=== PATIENT | female | born 1985 | race Caucasian/White ===

== ENCOUNTER → 2016-09-11 | Outpatient (CLI) | payer OTHER ==
--- NOTE | 2016-09-11 15:43 | US ---
EXAMINATION TYPE: US pelvic complete DATE OF EXAM: 09/11/2016 3:30 PM COMPARISON: NONE CLINICAL HISTORY: Pelvic Pain R10.2. TECHNIQUE: Transabdominal (TA) Date of LMP: 08/21/2016 EXAM MEASUREMENTS: Uterus: 8.3 x 4.4 x 5.2 cm Endometrial Stripe: 1.3 cm Right Ovary: 3.8 x 2.2 x 3.7 cm Left Ovary: 1.8 x 1.6 x2.4 cm 1. Uterus: Anteverted wnl 2. Endometrium: wnl 3. Right Ovary: wnl 4. Left Ovary: wnl 5. Bilateral Adnexa: small amount of free fluid adjacent to right ovary 6. Posterior cul-de-sac: no free fluid Endometrium is 13 mm with trilaminar appearance, upper limits of normal for secretory phase of menstr ual cycle. IMPRESSION: Small amount of free fluid in right pelvis, nonspecific finding, otherwise unremarkable s martha.
== END | disposition home or self-care (01) ==
LOC: RADUSWWP 15:06
PROVIDERS: ATTEND Obstetrics & Gynecology
DX: R10.2 Pelvic and perineal pain (principal)
CPT/HCPCS: 76856

== ENCOUNTER → 2017-11-10 | Outpatient (CLI) | payer OTHER ==
--- NOTE | 2017-11-11 07:23 | US ---
EXAMINATION TYPE: US pelvic complete DATE OF EXAM: 11/10/2017 COMPARISON: US CLINICAL HISTORY: R10.2 Pelvic pain; intermittent pelvic pain x 2 months, right > left; ; LEAP pr ocedure TECHNIQUE: Transabdominal (TA). Transabdominal sonographic images of the pelvis were acquired. Date of LMP: 11/07/2017 EXAM MEASUREMENTS: Uterus: 7.7 x 5.5 x 3.4 cm Endometrial Stripe: 0.2 cm Right Ovary: 2.8 x 2.1 x 1.7 cm Left Ovary: 3.0 x 3.0 x 1.9 cm 1. Uterus: Anteverted; patient wearing tampon at time of exam 2. Endometrium: thickness is wnl for Day 4 LMP 3. Right Ovary: small follicles 4. Left Ovary: small follicles Spectral, color and waveform Doppler imaging shows good arterial and venous flow within the ovaries ; there is no evidence for ovarian torsion. 5. Bilateral Adnexa: wnl 6. Posterior cul-de-sac: wnl IMPRESSION: 1. No significant abnormality identified at this time.
== END | disposition home or self-care (01) ==
LOC: RADUSWWP 16:17
PROVIDERS: ATTEND Obstetrics & Gynecology
DX: R10.2 Pelvic and perineal pain (principal)
CPT/HCPCS: 76856

== ENCOUNTER → 2017-12-02 | Outpatient (CLI) | payer OTHER ==
--- NOTE | 2017-12-02 22:41 | MR ---
EXAMINATION TYPE: MR lumbar spine wo con DATE OF EXAM: 12/02/2017 COMPARISON: Prior MRI lumbar spine December 09, 2015 HISTORY: LBP, scoliosis TECHNIQUE: Multiplanar, multisequence imaging of the lumbar spine is performed without IV contrast. FINDINGS: Sagittal images of the lumbar spine show vertebral body heights and alignment to appear sat isfactory. There is disc desiccation redemonstrated L4-L5 level otherwise the intervertebral discs de monstrate normal heights and hydration. No significant change from prior. Posterior disc herniation L 4-L5 level is redemonstrated on sagittal images. The conus medullaris is stable in position ending at mid T12 level without abnormal signal. The bone marrow signal intensity is within normal limits. Axial images show the T12-L1, L1-L2, and L2-L3 levels all to remain within normal limits. Axial images at L3-L4 level shows mild broad-based posterior disc protrusion minimally effacing anter ior thecal sac on axial image 15, bilateral neuroforamina are patent. No significant change from prio r. Axial images at L4-L5 level shows central disc protrusion effacing the anterior thecal sac on axial i mage 9, bilateral neural foramina are patent. No significant change from prior. Increased signal post eriorly consistent with annular tear is redemonstrated. Axial images at L5-S1 level are felt to remain within normal limits. No suspicious retroperitoneal findings are seen. IMPRESSION: Stable degenerative changes L3-L4 and to a greater degree L4-L5 level noted.
== END | disposition home or self-care (01) ==
LOC: RADMRIMAIN 21:03
PROVIDERS: ATTEND Psychiatry & Neurology Neurology
DX: M47.816 Spondylosis without myelopathy or radiculopathy, lumbar region (principal)
CPT/HCPCS: 72148

== ENCOUNTER 2017-12-05 11:41 | Emergency (ER) | payer OTHER ==
[2017-12-05 12:00] VITALS: BP 115/75; PULSE 64; RESP 18; TEMP 98
[2017-12-05] MEDS ORDERED: HYDROcodone/APAP 5-325MG 1 EACH TAB PO STA (12:14)
--- NOTE | 2017-12-05 12:31 | ED ---
Back Pain HPI - General Source: patient, RN notes reviewed Mode of arrival: ambulatory Limitations: no limitations <Fanta Kamara - Last Filed: 12/05/17 12:15> <Alexis Murdock - Last Filed: 12/08/17 06:34> - General Chief Complaint: Back Pain/Injury Stated Complaint: Back Pain Time Seen by Provider: 12/05/17 12:04 - History of Present Illness Initial Comments: This is a 32-year-old female who presents to the emergency department with chief complaint of chronic back pain. Patient states that she has been seeing Dr. Frias, a senior medical billing specialist. She states that she had an MRI performed recently but has yet to hear the results. She states that the senior medical billing specialist will not refill her [place] until the MRI results came back. She states that she has run out of her [place] but still has Flexeril and Motrin. Patient denies any recent falls, injuries or trauma since the MRI was taken. She denies saddle paresthesias or loss of bladder or bowel function. She denies radiation of pain down the legs or numbness and tingling. Patient requests pain medication. Denies recent fevers or chills, chest pain shortness of breath, abdominal pain , nausea or vomiting. (Fanta Kamara) - Related Data Home Medications Medication Instructions Recorded Confirmed Cyclobenzaprine [Flexeril] 10 mg PO TID PRN 12/11/16 12/11/16 HYDROcodone/APAP 5-325MG [[place] 1 tab PO BID 12/11/16 12/11/16 5-325] Allergies Allergy/AdvReac Type Severity Reaction Status Date / Time No Known Allergies Allergy Verified 12/05/17 11:57 Review of Systems ROS Other: All systems not noted in ROS Statement are negative. <Fanta Kamara - Last Filed: 12/05/17 12:15> ROS Other: All systems not noted in ROS Statement are negative. <Alexis Murdock - Last Filed: 12/08/17 06:34> ROS Statement: Those systems with pertinent positive or pertinent negative responses have been documented in the HPI. Past Medical History Past Medical History: Chest Pain / Angina Additional Past Medical History / Comment(s): Scoliosis, dislocated disk, hx "liver infection" fall 2016, History of Any Multi-Drug Resistant Organisms: None Reported Past Surgical History: Tubal Ligation Additional Past Surgical History / Comment(s): LEEP procedure Past Anesthesia/Blood Transfusion Reactions: No Reported Reaction Past Psychological History: Anxiety Smoking Status: Current every day smoker Past Alcohol Use History: None Reported Past Drug Use History: None Reported - Past Family History Father History Unknown: Yes Mother History Unknown: Yes Family Medical History: No Reported History <Fanta Kamara - Last Filed: 12/05/17 12:15> General Exam Limitations: no limitations Back exam: Present: normal inspection, full ROM. Absent: muscle spasm, paraspinal tenderness, vertebral tenderness <Fanta Kamara - Last Filed: 12/05/17 12:15> <Alexis Murdock - Last Filed: 12/08/17 06:34> - General Exam Comments Initial Comments: General: Awake and alert, well-developed; in no apparent distress. HEENT: Head atraumatic, normocephalic. Pupils are equal, round and reactive to light. Extraocular movements intact. Oropharynx moist without erythema or exudate. Neck: Supple. Normal ROM. Cardiovascular: Regular rate and rhythm. No murmurs, rubs or gallops. Chest symmetrical. Pedal pulses are 2+ equal and palpable bilaterally. Respiratory: Lungs clear to auscultation bilaterally. No wheezes, rales or rhonchi. Normal respiratory effort with no use of accessory muscles. Musculoskeletal: Normal ROM, no tenderness bilateral upper and lower extremities. Ambulating normally. Skin: [place], warm and dry without rashes or lesions. Neurological: Alert and oriented x3. CN II-XII grossly intact. Speech is fluent and answers are appropriate. No focal neuro deficits. Psychiatric: Normal mood and affect. No overt signs of depression or anxiety noted. (Fanta Kamara) Vital Signs 12/05/17 11:57 Temperature 98 F Pulse Rate 64 Respiratory 18 Rate Blood Pressure 115/75 O2 Sat by Pulse 100 Oximetry Medical Decision Making <Fanta Kamara - Last Filed: 12/05/17 12:15> <Alexis Murdock - Last Filed: 12/08/17 06:34> - Medical Decision Making This is a 32-year-old female who presents to the emergency department with chief complaint of chronic back pain. Patient states that she has run out of her [place]. She states she is awaiting results of her MRI until her senior medical billing specialist will refill her [place]. Patient states that she had to call into work on Wednesday because the back pain became worse. She denies saddle paresthesias or loss of bladder or bowel function. She denies any recent falls , injuries or trauma. Denies radiation of pain down the legs or numbness and tingling. On physical examination, patient has normal range of motion and there is no vertebral point tenderness. She is neurovascularly intact. This case was discussed with Dr. Murdock, who also evaluated the patient. Patient will be discharged home at this time. She is in agreement and voices understanding. She is in no acute distress. All questions answered. (Fanta Kamara) Resident/PA attestation: I, Dr. Alexis Murdock, personally saw and examined the patient. I have reviewed and agree with the resident/PA findings, including all diagnostic interpretations and treatment plans as written unless otherwise stated. I was present for the fernandez portions of any procedures performed and inclusive time noted for any critical care statement. (Alexis Murdock) Disposition Is patient prescribed a controlled substance at d/c from ED?: No Time of Disposition: 12:32 <Fanta Kamara - Last Filed: 12/05/17 12:15> <Alexis Murdock - Last Filed: 12/08/17 06:34> Clinical Impression: Chronic back pain Disposition: HOME SELF-CARE Condition: Good Instructions: Chronic Back Pain (ED) Additional Instructions: Please follow up with your senior medical billing specialist as scheduled. Please follow up with primary care provider within 1-2 days. Return to emergency department if symptoms should worsen or any concerns arise. Referrals: Monika Mendoza MD [Primary Care Provider] - 1-2 days
== END 2017-12-05 12:40 | disposition home or self-care (01) ==
LOC: EC 11:41
DX: G89.29 Other chronic pain (principal); M54.9 Dorsalgia, unspecified; F17.200 Nicotine dependence, unspecified, uncomplicated; Z98.51 Tubal ligation status; Z98.890 Other specified postprocedural states
CPT/HCPCS: 99283

== ENCOUNTER → 2018-01-13 | Outpatient (CLI) | payer OTHER ==
[2018-01-13 15:07] LABS: Basophils # (A) 0.1 k/uL (0-0.2); Basophils % (A) 1 %; Eosinophils # (A) 0.1 k/uL (0-0.7); Eosinophils % (A) 1 %; HCT 39.9 % (34.0-46.0); HGB 12.2 gm/dL (11.4-16.0); Hypochromasia Moderate; Lymphocytes % (A) 18 %; MCH 25.6 pg (25.0-35.0); MCHC 30.7 g/dL (31.0-37.0); MCV 83.3 fL (80.0-100.0); Mean Platelet Volume 8.2; Monocytes # (A) 0.6 k/uL (0-1.0); Monocytes % (A) 5 %; Neutrophils # (A) 8.3 k/uL (1.3-7.7); Neutrophils % (A) 74 %; Platelet Count 267 k/uL (150-450); RBC 4.78 m/uL (3.80-5.40); WBC 11.2 k/uL (3.8-10.6)
[2018-01-13 15:10] LABS: Anion Gap 6 mmol/L; Blood Urea Nitrogen 9 mg/dL (7-17); Calcium 9.1 mg/dL (8.4-10.2); Carbon Dioxide 28 mmol/L (22-30); Chloride 103 mmol/L (98-107); Glucose 87 mg/dL (74-99); Potassium 4.1 mmol/L (3.5-5.1); Sodium 137 mmol/L (137-145)
== END | disposition home or self-care (01) ==
LOC: LABWHC1 14:35
PROVIDERS: ATTEND Obstetrics & Gynecology
DX: Z01.812 Encounter for preprocedural laboratory examination (principal)
CPT/HCPCS: 36415; 80048; 85025

== ENCOUNTER 2018-01-20 05:42 | Day surgery (SDC) | payer OTHER ==
[2018-01-13 12:46] VITALS: BMI 23.3
--- NOTE | 2018-01-19 16:06 | P.HPOB ---
History of Present Illness H&P Date: 01/19/18 Chief Complaint: Recurrent RAMÍREZ 3 Monisha is a 32-year-old female with history of RAMÍREZ-3 and previous LEEP. On repeat colposcopy she again has RAMÍREZ-3 and with her having completed her family and risk of more potential pathology on her cervix and what is been previously noted a decision to move forward with a robotic-assisted laparoscopic hysterectomy possible SELENA and possible BSO was made. Risks/benefits/ alternatives were reviewed with the patient in detail and did include but were not limited to bleeding/infection/damage to vessels, nerves, ureters, bladder, bowel. All questions were answered for her prior to proceeding to the operating room. Past Medical History Past Medical History: Musculoskeletal Disorder Additional Past Medical History / Comment(s): Scoliosis, dislocated disc L4-5, hx "liver or kidney infection" Fall of 2015. History of Any Multi-Drug Resistant Organisms: None Reported Past Surgical History: Tubal Ligation Additional Past Surgical History / Comment(s): LEEP procedure. Past Anesthesia/Blood Transfusion Reactions: No Reported Reaction Past Psychological History: Anxiety Smoking Status: Current every day smoker Past Alcohol Use History: Rare Additional Past Alcohol Use History / Comment(s): Smokes 1 PPD, has been smoking for 16 yrs. Past Drug Use History: Marijuana Additional Drug Use History / Comment(s): Uses Medical Marijuana few times monthly. - Past Family History Father History Unknown: Yes Mother History Unknown: Yes Family Medical History: No Reported History Medications and Allergies Home Medications Medication Instructions Recorded Confirmed Type Cyclobenzaprine [Flexeril] 10 mg PO TID PRN 12/11/16 01/13/18 History HYDROcodone/APAP 5-325MG [[place] 1 tab PO DAILY PRN 12/11/16 01/13/18 History 5-325] Ibuprofen 800 mg PO BID PRN 01/13/18 01/13/18 History Allergies Allergy/AdvReac Type Severity Reaction Status Date / Time No Known Allergies Allergy Verified 01/13/18 12:31 Exam Osteopathic Statement: *. No significant issues noted on an osteopathic structural exam other than those noted in the History and Physical/Consult. - OBG Physical Exam Breast: both: normal (no masses) Abdomen: bowel sounds normal, no diffuse tenderness, no bruit present, no guarding noted, no hepatomegaly, no splenomegaly, no mass Vulva: both: normal Vagina: normal moisture, no discharge Cervix: no lesion, no discharge Uterus: normal size, normal contour Adnexa: both: normal Anus/Rectum: normal perianal skin, no rectal mass, no hemorrhoids, heme negative
[~2018-01-20 05:42] MED LIST: DEXAMETHASONE SOD PHOSPHATE 10 MG/ML 1 ML VIAL IV ONE; MIDAZOLAM 2 MG/2 ML VIAL IV PRN; ONDANSETRON 4 MG/2 ML VIAL IVP ONE; SCOPOLAMINE 1.5MG/72HR PATCH TRANSDERM ONE; ceFAZolin IN SWFI 2 GM/20 ML SYRINGE IVP ONE; fentaNYL (PF) 50 MCG/ML 2 ML AMP IV PRN
[2018-01-20] MEDS ORDERED: LIDOCAINE 1% 20 ML VIAL (10MG/ML) FOR IV START INTRADERMA ONE (06:31)
[2018-01-20] MEDS: LACTATED RINGERS 1,000 ML IV SCH (06:31)
[2018-01-20] MEDS ORDERED: HYDROmorphone (PF) 1 MG/ML ONE (07:37)
[2018-01-20] MEDS ORDERED: GLYCOPYRROLATE 0.2 MG/ML 2 ML VIAL ONE (07:37)
[2018-01-20] MEDS ORDERED: SUCCINYLCHOLINE CHLORIDE 100 MG/5 ML SYR IV ONE (07:37)
[2018-01-20] MEDS ORDERED: ROCURONIUM BROMIDE 10 MG/ML 10 ML VIAL IV ONE (07:37)
[2018-01-20] MEDS ORDERED: fentaNYL (PF) 50 MCG/ML 2 ML AMP ONE (07:37)
[2018-01-20] MEDS ORDERED: PROPOFOL 10 MG/ML 20 ML VIAL IV ONE (07:37)
[2018-01-20] MEDS ORDERED: NEOSTIGMINE 1 MG/ML 10 ML VIAL ONE (07:37)
[2018-01-20] MEDS ORDERED: LIDOCAINE 1% INJ 10MG/ML (20 ML MDV) ONE (07:37)
[2018-01-20] MEDS ORDERED: MIDAZOLAM 2 MG/2 ML VIAL ONE (07:37)
[2018-01-20] MEDS ORDERED: ROPIVACAINE 5 MG/ML 30 ML VIAL MISCELLANE ONE (08:15)
[2018-01-20] MEDS ORDERED: ONDANSETRON 4 MG/2 ML VIAL IVP PRN (09:15)
[2018-01-20] MEDS ORDERED: SIMETHICONE 80 MG CHEWABLE PO PRN (09:15)
[2018-01-20] MEDS ORDERED: diphenhydrAMINE 50 MG/ML 1 ML VIAL IVP PRN (09:15)
[2018-01-20] MEDS ORDERED: HYDROcodone/APAP 5-325MG 1 EACH TAB PO PRN (09:16)
--- NOTE | 2018-01-20 09:21 | P.OP ---
Date of Procedure: 01/20/18 Preoperative Diagnosis: RAMÍREZ-3 Postoperative Diagnosis: Same with left ovarian cyst Procedure(s) Performed: Robotic-assisted laparoscopic hysterectomy with left ovarian cystotomy Anesthesia: MELI Surgeon: Jack Bradley Chinchilla Farmer #1: Linda Ordaz Estimated Blood Loss (ml): 10 IV fluids (ml): 1,100 Urine output (ml): 300 Pathology: other (Uterus and cervix) Condition: stable Disposition: floor Operative Findings: Left ovarian cyst drained following entry with scissor Description of Procedure: Patient was taken to the operating suite where a general anesthetic was found be adequate. She was prepped and draped in the normal sterile fashion and placed in the dorsal lithotomy position. Initially a speculum was inserted into the vagina and the anterior lip of the cervix was identified and grasped with single-tooth tenaculum. Were then placed at 3 and 9. Cervix was dilated and sounded to 10 cm. Carmel manipulator was then inserted without difficulty with the 10 and a 3.5 cm cup. Once this was accomplished maximal Ascent of the uterus was noted. Instruments removed and a Grewal catheter was placed. At this point I did change gloves and attention was turned to the abdominal portion procedure where 2 mL of quarter percent Marcaine was injected periumbilically. Through this injected anesthetic a 5 mm skin incision was made and through this incision under direct visualization with an optical trocar and sleeve the camera was inserted. Once peritoneal placement was assured gas was allowed to fully insufflate the abdomen and patient was then placed in steep Trendelenburg position. 2 lateral ports were placed approximately 10 cm from the umbilicus these were through 8 mm skin incisions. A fourth port and sleeve was inserted through a 1 cm incision between the left lateral and the medial port. Medial port camera port was then replaced with a da Kamari camera port. Robot was then brought in and docked and a scissor was placed in the one arm and a [place] grasper in the 2 arm. Once this was accomplished I did break scrub and go to the console. Observations of the pelvis was then noted left ovarian cyst was noted and using electrocautery and a scissor a window was created in the cyst wall and the cyst was drained. Once this was accomplished uterus was elevated and tipped to the left-hand side and the utero-ovarian ligament was identified cauterized and cut followed by the mesosalpinx tissue and fallopian tube. Once to the round ligament round ligament was also cauterized and transected and anterior and posterior leaves of the broad ligament were dissected free down to level of the bladder flap uterine vasculature was then cauterized. Bladder flap was then identified undermined with [place] grasper and's incised with a scissor across face of the uterus to bring the bladder out of the operative field. Once this was accomplished attention was turned to the right side of the uterus in a similar fashion this tissues developed. This was accomplished uterus after was verified to be cauterized and an anterior colpotomy was made. Cup was then followed around in a counterclockwise fashion cheating head with necessary to maintain excellent hemostasis. Once this was accomplished uterus was brought into the vagina to maintain a pneumoperitoneum and pelvis was irrigated. Instruments were then exchanged for a [place] grasper and a make suture cut and the vaginal cuff was closed in a running fashion with to OB lock suture. Once this was completed instruments were removed and gas was allowed to expel from the abdomen. 5 deep breaths were provided during this process. I did do a cystoscopy at this point and good flow was noted from both ureteral jets and Dr. Ordaz close the incision subcuticularly injected and the remaining 8 mL of quarter percent Marcaine around the incisions. Sponge, lap, needle counts were all correct 2. Patient was then taken to the recovery room in stable and satisfactory condition.
[2018-01-20] MEDS: KETOROLAC 30 MG/ML 1 ML VIAL IVP PRN (13:36)
[2018-01-20] MEDS: HYDROcodone/APAP 5-325MG 1 EACH TAB PO PRN (18:35)
[2018-01-20 19:52] VITALS: RESP 16
[2018-01-21] MEDS: HYDROcodone/APAP 5-325MG 1 EACH TAB PO PRN ×2 (04:10→09:26)
[2018-01-21] MEDS: SENNOSIDES-DOCUSATE SODIUM 1 EACH TAB PO SCH ×2 (04:17→08:26)
[2018-01-21] MEDS: KETOROLAC 30 MG/ML 1 ML VIAL IVP PRN (08:24)
--- NOTE | 2018-01-21 08:27 | P.DS ---
Providers Expected date of discharge: 01/21/18 Attending physician: Jack Bradley Primary care physician: Reji Faustin [facility] Course: Monisha is doing very well postop day 1. She is ambulating, voiding, and she is tolerating her diet. She voices no complaints. Vital signs are stable and afebrile. Heart regular, lungs clear, extremities without pain. Abdomen is soft incisions are intact. Assessment postop day 1. Plan discharged home follow up with me in 1 week. Discharge instructions were thoroughly reviewed. Prescription for [place] and Motrin have been provided and all of the questions are answered for her prior to her discharge. Patient Condition at Discharge: Good Plan - Discharge Summary Discharge Rx Participant: No New Discharge Prescriptions: New HYDROcodone/APAP 5-325MG [[place] 5-325] 1 tab PO Q4HR PRN #30 tab PRN Reason: Pain Ibuprofen [Motrin] 600 mg PO Q6HR PRN #30 tab PRN Reason: Pain No Action HYDROcodone/APAP 5-325MG [[place] 5-325] 1 tab PO DAILY PRN PRN Reason: Pain Cyclobenzaprine [Flexeril] 10 mg PO TID PRN PRN Reason: Pain Ibuprofen 800 mg PO BID PRN PRN Reason: Pain Discharge Medication List Cyclobenzaprine [Flexeril] 10 mg PO TID PRN 12/11/16 [History] HYDROcodone/APAP 5-325MG [[place] 5-325] 1 tab PO DAILY PRN 12/11/16 [History] Ibuprofen 800 mg PO BID PRN 01/13/18 [History] HYDROcodone/APAP 5-325MG [[place] 5-325] 1 tab PO Q4HR PRN #30 tab 01/21/18 [Rx] Ibuprofen [Motrin] 600 mg PO Q6HR PRN #30 tab 01/21/18 [Rx] Follow up Appointment(s)/Referral(s): Jack Bradley DO [Doctor of Osteopathic Medicine] - 1 Week Activity/Diet/Wound Care/Special Instructions: No heavy lifting, limit stairs and driving, and pelvic rest. If any high temperatures, heavy bleeding, or severe pain call my office Discharge Disposition: HOME SELF-CARE
[2018-01-21 08:44] VITALS: BP 106/72; PULSE 82; TEMP 98.8
== END 2018-01-21 09:55 | disposition home or self-care (01) ==
LOC: OR 05:42 → 4FBP 09:20 → OR 01-21 09:55
PROVIDERS: ATTEND Obstetrics & Gynecology
DX: D06.9 Carcinoma in situ of cervix, unspecified (principal); N83.202 Unspecified ovarian cyst, left side; Z98.890 Other specified postprocedural states; M41.9 Scoliosis, unspecified; M51.26 Other intervertebral disc displacement, lumbar region; F41.9 Anxiety disorder, unspecified; F17.210 Nicotine dependence, cigarettes, uncomplicated; Z98.51 Tubal ligation status
CPT/HCPCS: 81025; 86900; 86901; 86850; 88309; 58570; J1100; J2405; J1885 ×2; J2795

== ENCOUNTER 2018-02-11 11:17 | Emergency (ER) | payer OTHER ==
[2018-02-11] MEDS ORDERED: KETOROLAC 60 MG/2 ML VIAL IM STA (11:41)
[2018-02-11] MEDS ORDERED: DEXAMETHASONE SOD PHOSPHATE 10 MG/ML 1 ML VIAL IM STA (11:41)
[2018-02-11] MEDS ORDERED: ORPHENADRINE 30 MG/ML 2 ML VIAL IM STA (11:41)
--- NOTE | 2018-02-11 11:49 | ED ---
Back Pain HPI - General Chief Complaint: Back Pain/Injury Stated Complaint: BACK INJURY Time Seen by Provider: 02/11/18 11:23 Source: patient, RN notes reviewed, old records reviewed Limitations: no limitations - History of Present Illness Initial Comments: This is a 32-year-old female presents emergency department until she went lower back pain. Patient reports that she has history of chronic back pain. She reports that 2 days ago she bent over to lift a toy kitchen for her son. She states it was heavy and felt a pop in her back. She denies any saddle anesthesias peripheral paresthesias. Patient is currently on Norflex and Toradol and [place]. Patient has no other symptoms at this time including abdominal pain. She denies any dysuria or hematuria or changes in bowel habits. - Related Data Home Medications Medication Instructions Recorded Confirmed Cyclobenzaprine [Flexeril] 10 mg PO TID PRN 12/11/16 01/20/18 HYDROcodone/APAP 5-325MG [[place] 1 tab PO DAILY PRN 12/11/16 01/20/18 5-325] Ibuprofen 800 mg PO BID PRN 01/13/18 01/20/18 Previous Rx's Medication Instructions Recorded HYDROcodone/APAP 5-325MG [[place] 1 tab PO Q4HR PRN #30 tab 01/21/18 5-325] Ibuprofen [Motrin] 600 mg PO Q6HR PRN #30 tab 01/21/18 Dexamethasone 0.75 mg PO DAILY #12 tab 02/11/18 Allergies Allergy/AdvReac Type Severity Reaction Status Date / Time No Known Allergies Allergy Verified 02/11/18 11:22 Review of Systems ROS Statement: Those systems with pertinent positive or pertinent negative responses have been documented in the HPI. ROS Other: All systems not noted in ROS Statement are negative. Past Medical History Past Medical History: Chest Pain / Angina Additional Past Medical History / Comment(s): Scoliosis, dislocated disk, hx "liver infection" fall 2015, History of Any Multi-Drug Resistant Organisms: None Reported Past Surgical History: Hysterectomy Additional Past Surgical History / Comment(s): LEEP procedure, partial hysteroctomy Past Anesthesia/Blood Transfusion Reactions: No Reported Reaction Past Psychological History: Anxiety Smoking Status: Current every day smoker Past Alcohol Use History: Rare Past Drug Use History: Marijuana - Past Family History Father History Unknown: Yes Mother History Unknown: Yes Family Medical History: No Reported History General Exam - General Exam Comments Initial Comments: His is a 32-year-old female. Alert and oriented. No significant distress. Limitations: no limitations General appearance: alert, in no apparent distress Head exam: Present: atraumatic, normocephalic, normal inspection Eye exam: Present: normal appearance, PERRL, EOMI. Absent: scleral icterus, conjunctival injection, periorbital swelling ENT exam: Present: normal exam, normal oropharynx, mucous membranes moist Neck exam: Present: normal inspection Respiratory exam: Present: normal lung sounds bilaterally. Absent: respiratory distress, wheezes, rales, rhonchi, stridor Cardiovascular Exam: Present: regular rate, normal rhythm, normal heart sounds. Absent: systolic murmur, diastolic murmur, rubs, gallop, clicks GI/Abdominal exam: Present: soft, normal bowel sounds. Absent: distended, tenderness, guarding, rebound, rigid Extremities exam: Present: normal inspection, full ROM, normal capillary refill. Absent: pedal edema, joint swelling, calf tenderness Back exam: Present: normal inspection, vertebral tenderness (Shows lumbar vertebral tenderness.) Neurological exam: Present: alert, oriented X3, CN II-XII intact Psychiatric exam: Present: normal affect, normal mood Course Vital Signs 02/11/18 11:19 Temperature 98.3 F Pulse Rate 77 Respiratory 105 H Rate Blood Pressure 108/68 O2 Sat by Pulse 100 Oximetry Medical Decision Making - Medical Decision Making 32-year-old female presents emergency times a day with 2. lower back pain after bending over to lift up a toy. At this time Patient has some tenderness over lumbar spine. No evidence of any acute process on exam. Patient has no fevers or chills. She has a normal urinalysis. She is given IM Norflex and Toradol and Decadron. She is. I discussed at this time Patient will be started on steroid pack continue at home pain medication. Discussed return parameters. All questions answered. - Lab Data Lab Results 02/11/18 Range/Units 11:46 Urine Color Colorless Urine Appearance Clear (Clear) Urine pH 6.5 (5.0-8.0) Ur Specific [place] 1.004 (1.001-1.035) Urine Protein Negative (Negative) Urine Glucose (UA) Negative (Negative) Urine Ketones Negative (Negative) Urine Blood Negative (Negative) Urine Nitrite Negative (Negative) Urine Bilirubin Negative (Negative) Urine Urobilinogen <2.0 (<2.0) mg/dL Ur Leukocyte Esterase Negative (Negative) - Radiology Data Radiology results: report reviewed No suspicious acute changes. Evidence of scoliosis noted. Disposition Clinical Impression: Mechanical back pain Disposition: HOME SELF-CARE Condition: Good Instructions: Chronic Back Pain (ED) Additional Instructions: Patient advised to take at home pain medication muscle relaxers. He can have the steroid taper pack as directed. Have close follow-up with your neurologist. Return to the emergency department if any alarming signs or symptoms occur. Prescriptions: Dexamethasone 0.75 mg PO DAILY #12 tab Is patient prescribed a controlled substance at d/c from ED?: No Referrals: Monika Mendoza MD [Primary Care Provider] - 1-2 days Time of Disposition: 12:18
[2018-02-11 11:56] LABS: Appearance,Urine Clear (Clear); Bilirubin,Urine Negative (Negative); Blood,Urine Negative (Negative); Color,Urine Colorless; Glucose,Urine (UA) Negative (Negative); Ketones,Urine Negative (Negative); Leukocyte Esterase,Urine Negative (Negative); Nitrite,Urine Negative (Negative); PH, Urine 6.5 (5.0-8.0); Protein,Urine Negative (Negative); Specific Gravity,Urine 1.004 (1.001-1.035); Urobilinogen,Urine <2.0 mg/dL (<2.0)
--- NOTE | 2018-02-11 11:56 | XR ---
EXAMINATION TYPE: XR lumbar spine 2 or 3V DATE OF EXAM: 02/11/2018 COMPARISON: 10/14/2015 HISTORY: Pain TECHNIQUE: Three-view lumbar spine FINDINGS: There is straightening of the lumbar vertebral alignment in the sagittal plane. Disc height s appear preserved. Vertebral body heights are preserved. Some subtle scoliosis is within the upper l umbar spine in the frontal projection. This is stable. IMPRESSION: 1. No suspicious acute changes. 2. Scoliosis
[2018-02-11 12:29] VITALS: BP 116/68; PULSE 85; RESP 18; TEMP 98.1
== END 2018-02-11 12:28 | disposition home or self-care (01) ==
LOC: EC 11:17
DX: M54.5 Low back pain (principal); M41.86 Other forms of scoliosis, lumbar region; G89.29 Other chronic pain; F17.200 Nicotine dependence, unspecified, uncomplicated; Z79.1 Long term (current) use of non-steroidal anti-inflammatories (NSAID); Z79.891 Long term (current) use of opiate analgesic; Z79.899 Other long term (current) drug therapy; X50.1XXA Overexertion from prolonged static or awkward postures, initial encounter; Y93.89 Activity, other specified
CPT/HCPCS: 81003; 72100; 99284; 96372 ×3; J1100; J2360; J1885

== ENCOUNTER 2018-03-14 10:59 | Emergency (ER) | payer OTHER ==
[2018-03-14 11:05] VITALS: TEMP 97.9
[2018-03-14 11:43] VITALS: RESP 16
[2018-03-14] MEDS ORDERED: KETOROLAC 30 MG/ML 1 ML VIAL IVP STA (12:17)
--- NOTE | 2018-03-14 12:21 | ED ---
General Adult HPI - General Chief complaint: Chest Pain Stated complaint: Chest Pain Time Seen by Provider: 03/14/18 11:35 Source: patient, RN notes reviewed Mode of arrival: wheelchair Limitations: no limitations - History of Present Illness Initial comments: 32-year-old female presents to the emergency department for a chief complaint of chest pain 4 hours. Patient states the pain is a sharp left-sided pain. She denies any radiating pain down the left arm or right arm. Patient denies any nausea or vomiting. Patient states initially the pain was worsened by deep breathing. She states this started to occur before her court case this morning. Patient does have a history of anxiety. She states that after the court case it did subside somewhat but she wanted to be evaluated. Patient states the pain is now almost completely resolved and is currently at a 3. She denies any cardiac history. She states she has experienced this type of chest pain before. She denies any surgeries in the past month. Patient denies any use of oral contraceptives. She denies any right-sided chest pain. She denies any shortness of breath at this time.Patient has no other complaints at this time including shortness of breath, abdominal pain, nausea or vomiting, headache , or visual changes. - Related Data Home Medications Medication Instructions Recorded Confirmed Cyclobenzaprine [Flexeril] 10 mg PO TID PRN 12/11/16 03/14/18 HYDROcodone/APAP 7.5-325MG [[place] 1 tab PO BID PRN 03/14/18 03/14/18 7.5-325] Ibuprofen [Motrin Ib] 200 mg PO Q6H PRN 03/14/18 03/14/18 Allergies Allergy/AdvReac Type Severity Reaction Status Date / Time No Known Allergies Allergy Verified 03/14/18 11:40 Review of Systems ROS Statement: Those systems with pertinent positive or pertinent negative responses have been documented in the HPI. ROS Other: All systems not noted in ROS Statement are negative. Past Medical History Past Medical History: Chest Pain / Angina Additional Past Medical History / Comment(s): Scoliosis, dislocated disk, hx "liver infection" fall 2015, History of Any Multi-Drug Resistant Organisms: None Reported Past Surgical History: Hysterectomy Additional Past Surgical History / Comment(s): LEEP procedure, partial hysteroctomy Past Anesthesia/Blood Transfusion Reactions: No Reported Reaction Past Psychological History: Anxiety Smoking Status: Current every day smoker Past Alcohol Use History: Rare Past Drug Use History: Marijuana - Past Family History Father History Unknown: Yes Mother History Unknown: Yes Family Medical History: No Reported History General Exam Limitations: no limitations General appearance: alert, in no apparent distress Head exam: Present: atraumatic, normocephalic, normal inspection Eye exam: Present: normal appearance, PERRL, EOMI. Absent: scleral icterus, conjunctival injection, periorbital swelling ENT exam: Present: normal exam, mucous membranes moist Neck exam: Present: normal inspection, full ROM. Absent: tenderness, meningismus, lymphadenopathy Respiratory exam: Present: normal lung sounds bilaterally. Absent: respiratory distress, wheezes, rales, rhonchi, stridor Cardiovascular Exam: Present: regular rate, normal rhythm, normal heart sounds. Absent: systolic murmur, diastolic murmur, rubs, gallop, clicks Neurological exam: Present: alert, oriented X3, CN II-XII intact Psychiatric exam: Present: normal affect, normal mood Course Vital Signs 03/14/18 03/14/18 03/14/18 11:04 11:31 11:39 Temperature 97.9 F Pulse Rate 89 Respiratory 18 16 Rate Blood Pressure 114/81 O2 Sat by Pulse 98 100 Oximetry 03/14/18 03/14/18 03/14/18 12:00 12:30 13:00 Temperature Pulse Rate 59 L 61 55 L Respiratory Rate Blood Pressure 114/80 116/66 109/71 O2 Sat by Pulse 99 99 99 Oximetry 03/14/18 13:47 Temperature Pulse Rate 70 Respiratory 16 Rate Blood Pressure 115/69 O2 Sat by Pulse 100 Oximetry EKG Findings - EKG Comments: EKG Findings:: Sinus bradycardia, ventricular rate 58, NM interval 144, QTC 424 , no evidence of ST elevation or depression. Medical Decision Making - Medical Decision Making 32-year-old female presents to the emergency department with a chief complaint of sharp left chest pain worse with inspiration 4 hours. Patient states this started before her court case this morning. She states that since that time the pain has resolved. Patient states she has a history of anxiety and believes this may be related but wanted to be evaluated. Patient is well- appearing. She rates her pain at a 3 on presentation. Vitals are stable. Patient is normotensive with a normal heart rate. She is well appearing on exam. EKG shows no abnormalities or evidence of ST elevation or depression. Chest x-ray shows no acute cardiopulmonary process. Patient is perc negative. On reevaluation patient states she is feeling much better and pain is completely resolved. She states she is ready to go home and that she believes the pain was related to anxiety. Patient will follow-up with primary care in 1- 2 days. She will return if she has any worsening symptoms which she is aware of. His custom with Dr. Melton Disposition Clinical Impression: Atypical chest pain Disposition: HOME SELF-CARE Condition: Good Instructions: Chest Pain (ED) Additional Instructions: Please take Motrin and Tylenol for pain. Please return to the emergency department if you have any worsening symptoms. Is patient prescribed a controlled substance at d/c from ED?: No Referrals: Monika Mendoza MD [Primary Care Provider] - 1-2 days Time of Disposition: 13:30
--- NOTE | 2018-03-14 13:11 | XR ---
EXAMINATION TYPE: XR chest 2V DATE OF EXAM: 03/14/2018 COMPARISON: NONE HISTORY: Chest pain TECHNIQUE: Frontal and lateral views of the chest are obtained. FINDINGS: There is no focal air space opacity. No evidence for pneumothorax. No pleural effusion. The cardiac silhouette size is within normal limits. The osseous structures are grossly intact. IMPRESSION: 1. No acute cardiopulmonary process.
[2018-03-14 13:48] VITALS: BP 115/69; PULSE 70
== END 2018-03-14 13:47 | disposition home or self-care (01) ==
LOC: EC 10:59
DX: R07.89 Other chest pain (principal); F17.200 Nicotine dependence, unspecified, uncomplicated
CPT/HCPCS: 93005; 71046; 99285; 96374; J1885

== ENCOUNTER 2021-11-14 10:30 | Emergency (ER) | payer OTHER ==
[2021-11-14 11:05] VITALS: RESP 18; TEMP 98
--- NOTE | 2021-11-14 13:48 | ED ---
General Adult HPI - General Chief complaint: GI Bleed Stated complaint: nausea, rectal bleeding Time Seen by Provider: 11/14/21 13:20 Source: patient Mode of arrival: ambulatory Limitations: no limitations - History of Present Illness Initial comments: Dictation was produced using [employer] dictation software. please excuse any grammatical, word or spelling errors. Chief Complaint: 36-year-old female presents to the emergency department for bright blood per rectum History of Present Illness: Patient 36-year-old female no significant past medical history. She states she was donating plasma yesterday when all of a sudden she started to feel extremely nauseated. Her plasma donation was ended early. At that time she started to have episodes of nausea and vomiting. She ended up going home. Shortly after she heard some suprapubic cramping. She went to the toilet and had bright blood per rectum. Since yesterday she's been having multiple bouts of bright red blood per rectum. She does have some rectal pain that feels worse when standing up as opposed to sitting down. Patient states she is likely not . She has no history of GI bleed per she doesn't take any anticoagulation medications. The ROS documented in this emergency department record has been reviewed and confirmed by me. Those systems with pertinent positive or negative responses have been documented in the HPI. All other systems are other negative and/or noncontributory. PHYSICAL EXAM: General Impression: Alert and oriented x3, not in acute distress HEENT: Normocephalic atraumatic, extra-ocular movements intact, pupils equal and reactive to light bilaterally, mucous membranes moist. Cardiovascular: Heart regular rate and rhythm Chest: Able to complete full sentences, no retractions, no tachypnea Abdomen: abdomen soft, non-tender, non-distended, no organomegaly Musculoskeletal: Pulses present and equal in all extremities, no peripheral edema Motor: no focal deficits noted Neurological: CN II-XII grossly intact, no focal motor or sensory deficits noted Skin: Intact with no visualized rashes Psych: Normal affect and mood Rectal exam: No fissure, no rectal or palpable masses and anal vault, no hemorrhoids ED course: 36-year-old female presents to the emergency department for bright red blood per rectum. Patient has been having multiple episodes of bright red blood per rectum since yesterday. She denies any symptoms of anemia. Says she does not have any abdominal pain at the moment. Vital signs upon arrival are within acceptable limits. Laboratory evaluation obtained. Leukocytosis 16.1. Hemoglobin of 15.6, coag panel is unremarkable. Metabolic panel is negative. Cervical blood is positive. Patient observed in emergency department for 4 hours found to be in stable medical condition upon reevaluation at 2:45 PM. Disposition options were discussed with patient. She is agreeable for discharge with strict return precautions. Patient states that since being in the ER her symptoms have been improving. Patient given outpatient referral to gastroenterology. Understands the signs and symptoms of when to return to the ER. - Related Data Home Medications Medication Instructions Recorded Confirmed Cyclobenzaprine [Flexeril] 10 mg PO TID PRN 12/11/16 03/14/18 HYDROcodone/APAP 7.5-325MG [[place] 1 tab PO BID PRN 03/14/18 03/14/18 7.5-325] Ibuprofen [Motrin Ib] 200 mg PO Q6H PRN 03/14/18 03/14/18 Allergies Allergy/AdvReac Type Severity Reaction Status Date / Time No Known Allergies Allergy Verified 11/14/21 11:04 Review of Systems ROS Statement: Those systems with pertinent positive or pertinent negative responses have been documented in the HPI. ROS Other: All systems not noted in ROS Statement are negative. Past Medical History Past Medical History: Chest Pain / Angina Additional Past Medical History / Comment(s): Scoliosis, dislocated disk, hx "liver infection" fall 2015, History of Any Multi-Drug Resistant Organisms: None Reported Past Surgical History: Hysterectomy Additional Past Surgical History / Comment(s): LEEP procedure, partial hysteroctomy Past Anesthesia/Blood Transfusion Reactions: No Reported Reaction Past Psychological History: Anxiety Smoking Status: Current every day smoker Past Alcohol Use History: Rare Past Drug Use History: Marijuana - Past Family History Father History Unknown: Yes Mother History Unknown: Yes Family Medical History: No Reported History General Exam Limitations: no limitations Course Vital Signs 11/14/21 11:00 Temperature 98.0 F Pulse Rate 69 Respiratory 18 Rate Blood Pressure 129/83 O2 Sat by Pulse 99 Oximetry Medical Decision Making - Lab Data Result diagrams: 11/14/21 14:06 11/14/21 14:06 Lab Results 11/14/21 11/14/21 11/14/21 Range/Units 14:06 14:06 14:06 WBC 16.1 H (3.8-10.6) k/uL RBC 4.95 (3.80-5.40) m/uL Hgb 15.6 (11.4-16.0) gm/dL Hct 46.4 H (34.0-46.0) % MCV 93.7 (80.0-100.0) fL MCH 31.5 (25.0-35.0) pg MCHC 33.7 (31.0-37.0) g/dL RDW 13.0 (11.5-15.5) % Plt Count 280 (150-450) k/uL MPV 8.1 Neutrophils % 85 % Lymphocytes % 9 % Monocytes % 4 % Eosinophils % 2 % Basophils % 1 % Neutrophils # 13.7 H (1.3-7.7) k/uL Lymphocytes # 1.4 (1.0-4.8) k/uL Monocytes # 0.6 (0-1.0) k/uL Eosinophils # 0.3 (0-0.7) k/uL Basophils # 0.1 (0-0.2) k/uL PT 10.9 (9.0-12.0) sec INR 1.0 (<1.2) APTT 23.1 (22.0-30.0) sec Sodium 137 (137-145) mmol/L Potassium 3.6 (3.5-5.1) mmol/L Chloride 105 (98-107) mmol/L Carbon Dioxide 26 (22-30) mmol/L Anion Gap 6 mmol/L BUN 9 (7-17) mg/dL Creatinine 0.66 (0.52-1.04) mg/dL Est GFR (CKD-EPI)AfAm >90 (>60 ml/min/1.73 sqM) Est GFR (CKD-EPI)NonAf >90 (>60 ml/min/1.73 sqM) Glucose 95 (74-99) mg/dL Calcium 8.5 (8.4-10.2) mg/dL Stool Occult Blood (Negative) 11/14/21 Range/Units 14:06 WBC (3.8-10.6) k/uL RBC (3.80-5.40) m/uL Hgb (11.4-16.0) gm/dL Hct (34.0-46.0) % MCV (80.0-100.0) fL MCH (25.0-35.0) pg MCHC (31.0-37.0) g/dL RDW (11.5-15.5) % Plt Count (150-450) k/uL MPV Neutrophils % % Lymphocytes % % Monocytes % % Eosinophils % % Basophils % % Neutrophils # (1.3-7.7) k/uL Lymphocytes # (1.0-4.8) k/uL Monocytes # (0-1.0) k/uL Eosinophils # (0-0.7) k/uL Basophils # (0-0.2) k/uL PT (9.0-12.0) sec INR (<1.2) APTT (22.0-30.0) sec Sodium (137-145) mmol/L Potassium (3.5-5.1) mmol/L Chloride (98-107) mmol/L Carbon Dioxide (22-30) mmol/L Anion Gap mmol/L BUN (7-17) mg/dL Creatinine (0.52-1.04) mg/dL Est GFR (CKD-EPI)AfAm (>60 ml/min/1.73 sqM) Est GFR (CKD-EPI)NonAf (>60 ml/min/1.73 sqM) Glucose (74-99) mg/dL Calcium (8.4-10.2) mg/dL Stool Occult Blood Positive H (Negative) Disposition Clinical Impression: BRBPR (bright red blood per rectum) Disposition: HOME SELF-CARE Condition: Fair Instructions (If sedation given, give patient instructions): Gastrointestinal Bleeding (ED) Is patient prescribed a controlled substance at d/c from ED?: No Referrals: Tabitha Harmon MD [STAFF PHYSICIAN] - 1-2 days Time of Disposition: 14:44
[2021-11-14 14:17] LABS: Basophils # (A) 0.1 k/uL (0-0.2); Basophils % (A) 1 %; Eosinophils # (A) 0.3 k/uL (0-0.7); Eosinophils % (A) 2 %; HCT 46.4 % (34.0-46.0); HGB 15.6 gm/dL (11.4-16.0); Lymphocytes # (A) 1.4 k/uL (1.0-4.8); Lymphocytes % (A) 9 %; MCH 31.5 pg (25.0-35.0); MCHC 33.7 g/dL (31.0-37.0); MCV 93.7 fL (80.0-100.0); Mean Platelet Volume 8.1; Monocytes # (A) 0.6 k/uL (0-1.0); Monocytes % (A) 4 %; Neutrophils # (A) 13.7 k/uL (1.3-7.7); Neutrophils % (A) 85 %; Platelet Count 280 k/uL (150-450); RBC 4.95 m/uL (3.80-5.40); WBC 16.1 k/uL (3.8-10.6)
[2021-11-14 14:30] LABS: Partial Thromboplastin Time 23.1 sec (22.0-30.0); Prothrombin Time 10.9 sec (9.0-12.0)
[2021-11-14 14:35] LABS: African American GFR (CKD) >90 (>60 ml/min/1.73 sqM); Anion Gap 6 mmol/L; Blood Urea Nitrogen 9 mg/dL (7-17); Calcium 8.5 mg/dL (8.4-10.2); Carbon Dioxide 26 mmol/L (22-30); Chloride 105 mmol/L (98-107); Glucose 95 mg/dL (74-99); Non-African American GFR(CKD) >90 (>60 ml/min/1.73 sqM); Potassium 3.6 mmol/L (3.5-5.1); Sodium 137 mmol/L (137-145)
[2021-11-14] MEDS ORDERED: ONDANSETRON ODT 8 MG TAB.RAPDIS PO STA (14:37)
[2021-11-14 15:11] VITALS: BP 119/73; PULSE 88
== END 2021-11-14 15:14 | disposition home or self-care (01) ==
LOC: EC 10:30
DX: K62.5 Hemorrhage of anus and rectum (principal); F17.200 Nicotine dependence, unspecified, uncomplicated
CPT/HCPCS: 36415; 80048; 82272; 85025; 85610; 85730; 86850; 86900; 86901

== ENCOUNTER 2021-12-12 11:16 | Emergency (ER) | payer OTHER ==
[2021-12-12 11:55] VITALS: TEMP 98.4
[2021-12-12] MEDS ORDERED: HYDROcodone/APAP 5-325MG 1 EACH TAB PO STA (12:07)
[2021-12-12] MEDS ORDERED: LIDOCAINE 1% INJ 10MG/ML (5 ML VIAL-PF) SQ ONE (12:07)
[2021-12-12] MEDS ORDERED: DIPH,PERTUS(ACELL)TETVAC-LF 0.5 ML VIAL IM ONE (12:07)
--- NOTE | 2021-12-12 12:12 | ED ---
General Adult HPI - General Chief complaint: Skin/Abscess/Foreign Body Stated complaint: animal bite lt knee Time Seen by Provider: 12/12/21 12:04 Source: patient, family, RN notes reviewed, old records reviewed Mode of arrival: wheelchair - History of Present Illness Initial comments: Patient was holding her four foot long pet iguanna and he bit her left thigh today. As she pushed him away his claw caused another laceration approximately 4 cm long. Patient denies any other injuries. -: hour(s) (1) Location: left, lower extremity (thigh) Severity scale (1-10): 4 Quality: constant Consistency: constant Improves with: none Associated Symptoms: denies other symptoms Treatments Prior to Arrival: none - Related Data Home Medications Medication Instructions Recorded Confirmed Cyclobenzaprine [Flexeril] 10 mg PO TID PRN 12/11/16 03/14/18 HYDROcodone/APAP 7.5-325MG [[place] 1 tab PO BID PRN 03/14/18 03/14/18 7.5-325] Ibuprofen [Motrin Ib] 200 mg PO Q6H PRN 03/14/18 03/14/18 Previous Rx's Medication Instructions Recorded Sulfamethox-Tmp 800-160Mg [Bactrim 1 each PO Q12HR 14 Days #28 tab 12/12/21 Ds] Allergies Allergy/AdvReac Type Severity Reaction Status Date / Time No Known Allergies Allergy Verified 12/12/21 11:55 Review of Systems ROS Statement: Those systems with pertinent positive or pertinent negative responses have been documented in the HPI. ROS Other: All systems not noted in ROS Statement are negative. Past Medical History Past Medical History: Chest Pain / Angina Additional Past Medical History / Comment(s): Scoliosis, dislocated disk, hx "liver infection" fall 2015, History of Any Multi-Drug Resistant Organisms: None Reported Past Surgical History: Hysterectomy Additional Past Surgical History / Comment(s): LEEP procedure, partial hysteroctomy Past Anesthesia/Blood Transfusion Reactions: No Reported Reaction Past Psychological History: Anxiety Smoking Status: Current every day smoker Past Alcohol Use History: None Reported, Rare Past Drug Use History: None Reported, Marijuana - Past Family History Father History Unknown: Yes Mother History Unknown: Yes Family Medical History: No Reported History General Exam General appearance: alert, in no apparent distress Head exam: Present: atraumatic, normocephalic, normal inspection Eye exam: Present: normal appearance ENT exam: Present: mucous membranes moist Respiratory exam: Absent: respiratory distress, accessory muscle use Cardiovascular Exam: Present: bradycardia GI/Abdominal exam: Present: soft Extremities exam: Present: normal capillary refill Left Upper Leg exam: Present: full ROM, tenderness, laceration (Multiple lacerations and punctures to the left anterior thigh. One laceration approximately 4 cm long, another 1 cm, another 2 cm macerated tissue) Neurovascular tendon exam: Present: no vascular compromise. Absent: extremity cold to touch Neurological exam: Present: alert, oriented X3 Psychiatric exam: Present: normal affect, normal mood Skin exam: Present: warm, dry, normal color. Absent: cyanosis, diaphoretic Course Vital Signs 12/12/21 12/12/21 11:47 13:28 Temperature 98.4 F Pulse Rate 55 L 60 Respiratory 18 20 Rate Blood Pressure 119/75 120/64 O2 Sat by Pulse 100 98 Oximetry Procedures - Laceration Laceration #1 Consent Obtained: verbal consent Indication: laceration Site: lower extremity (left thigh) Description: linear Depth: simple, single layer Anesthetic Used: lidocaine 1% Pre-repair: irrigated extensively (300cc saline) Type of Sutures: nylon Size of Sutures: 4-0 Number of Sutures: 3 Technique: simple, interrupted Patient Tolerated Procedure: well, no complications Medical Decision Making - Medical Decision Making Patient was bitten by her pet frances, sustained multiple puncture wounds and lacerations to the anterior left thigh. Wounds were irrigated copiously with saline. Large laceration was grossly approximated with 3 sutures. The smaller lacerations were dressed with Steri- Strips. She was placed on bactrim for 2 weeks to cover Serratia marcescens from iguanna bite. Patients tetanus shot was updated this visit. She does have an appointment with her primary care doctor for another reason tomorrow. She was instructed have sutures removed in 7-10 days. Return to the emergency room with any new or concerning symptoms including redness, pain or fevers. She is agreeable to this plan of care. Case discussed with Dr. Murdock Disposition Clinical Impression: Reptile bite Disposition: HOME SELF-CARE Condition: Good Instructions (If sedation given, give patient instructions): Animal Bite (ED) Additional Instructions: Do not put any ointments or lotions on the wound. Keep appointment with your doctor tomorrow. Have sutures removed in 7-10 days. Take antibiotics as prescribed for the next 14 days. I do recommend taking probiotics while taking these antibiotics. Return to the emergency room with any new or concerning symptoms including fevers, increased redness, pain or drainage. Prescriptions: Sulfamethox-Tmp 800-160Mg [Bactrim Ds] 1 each PO Q12HR 14 Days #28 tab Is patient prescribed a controlled substance at d/c from ED?: No Referrals: Monika Mendoza MD [Primary Care Provider] - 1-2 days Time of Disposition: 13:02
[2021-12-12 13:30] VITALS: BP 120/64; PULSE 60; RESP 20
== END 2021-12-12 13:30 | disposition home or self-care (01) ==
LOC: EC 11:16
DX: S80.862A Insect bite (nonvenomous), left lower leg, initial encounter (principal); F17.200 Nicotine dependence, unspecified, uncomplicated; Z23 Encounter for immunization; W59.81XA Bitten by other nonvenomous reptiles, initial encounter
CPT/HCPCS: 90715; 99282; 12001; 90471; J2001